=== PATIENT | female | born 1970 | race Caucasian/White ===

== ENCOUNTER 2023-03-21 15:56 | Emergency (ER) | payer BC, SELFPAY ==
[2023-03-21 15:57] VITALS: BP 205/118; PULSE 84; RESP 16; TEMP 36.3; O2SAT 100; BMI 34.3
--- NOTE | 2023-03-21 16:41 | EX.ED.DYSGE1 ---
HPI <AYO Reese - Last Filed: 03/21/23 18:52> History of Present Illness Chief Complaint: Hypertension Narrative Narrative: Patient presenting today due to 2 weeks of intermittent lightheadedness and mild headaches. Over the past week she has had lower back pain that she attributes to recently driving here from [place], she reports that when she drives her back pain worsens. She denies any injury to her back, bowel/bladder incontinence, saddle paresthesia, and urinary symptoms. She reports that a few days ago she had mild midsternal chest pain but she attributes that to being stressed recently. She denies any current chest pain, shortness of breath, or history of blood clots. She has had 2 episodes of nausea and vomiting over the past week, the last time being yesterday. She denies any fever, chills, and abdominal pain. She reports a history of hypertension and has been out of her blood pressure medication for several weeks due to having a lapse in health insurance. PFSH <AYO Reese - Last Filed: 03/21/23 18:52> [facility] Home Medications hydrochlorothiazide 25 mg tablet 25 mg PO DAILY hypertension #30 tabs 03/21/23 [Rx Last Taken Unknown] metoprolol succinate 50 mg tablet,extended release 24 hr 50 mg PO DAILY 90 days #90 tabs 03/21/23 [Rx Last Taken Unknown] Allergy/AdvReac Type Severity Reaction Status Date / Time No Known Allergies Allergy Verified 03/21/23 15:58 Social History Smoking Status: Never smoker ROS <AYO Reese - Last Filed: 03/21/23 18:52> ROS ED Constitutional Constitutional ED: Denies chills or fever(s) Eyes Eyes: Denies change in vision Cardiovascular Cardiovascular: Denies chest pain Respiratory/Chest Respiratory/Chest: Denies cough or dyspnea Gastrointestinal Gastrointestinal: Denies abdominal pain, nausea or vomiting Genitourinary Genitourinary ED: Denies dysuria, hematuria or urinary urgency Musculoskeletal Musculoskeletal: Reports back pain; Denies arthralgias or myalgias Integumentary Denies rash Neurologic Neurologic: Denies paresthesias or weakness EXAM <AYO Reese - Last Filed: 03/21/23 18:52> Physical Exam Const Vital Signs: 03/21/23 15:57 03/21/23 17:01 03/21/23 18:57 Temperature 97.4 F L Temperature Source Temporal Pulse Rate 84 Respiratory Rate 16 Blood Pressure 205/118 H 182/106 H 187/117 H Blood Pressure Mean 147 131 Pulse Ox 100 Oxygen Delivery Method Room Air Positive well nourished, well developed and no apparent distress General Appearance ED: well developed HEENT Reports normocephalic and head/scalp atraumatic Mouth ED: Yes moist mucous membranes normal Eyes PERRL and EOMs intact bilaterally Neck full ROM and supple Chest Wall inspection of chest normal Resp normal respiratory effort and clear to auscultation bilaterally Cardio regular rate and regular rhythm GI soft to palpation, non-tender, non-distended and no masses Back/Spine normal ROM and normal to inspection Thoracic Spine / Upper Back: Negative for thoracic spinal tenderness Lumbar Spine / Lower Back: Negative for lumbar spinal tenderness Extremity normal to inspection and full ROM Neuro oriented x3, CN's II-XII intact bilaterally, moves all extremities, no focal motor deficits and no sensory deficits noted Sensorium / Orientation: awake and alert Motor Exam: strength 5/5 throughout Psych mental status grossly normal and thought process normal Skin no rashes or lesions noted and no wounds <Dr. Caio Tenorio DO - Last Filed: 03/21/23 19:10> Physical Exam Const Vital Signs: 03/21/23 15:57 03/21/23 17:01 03/21/23 18:57 Temperature 97.4 F L Temperature Source Temporal Pulse Rate 84 Respiratory Rate 16 Blood Pressure 205/118 H 182/106 H 187/117 H Blood Pressure Mean 147 131 Pulse Ox 100 Oxygen Delivery Method Room Air MDM <AYO Reese - Last Filed: 03/21/23 18:52> [facility] Narrative Medical decision making narrative: Patient presenting today due to multiple complaints, she has had lower back pain that has been intermittent and started after she completed a drive from [place] to [place] by herself. It hurts worse when driving. She does not have any midline tenderness to her back, she does not have any reproducible paraspinal tenderness to her back. There is no injury to her back, symptoms or not consistent with cauda equina syndrome, I do not feel that any imaging is indicated at this time. She has had 2 episodes of nausea and vomiting over the past week, the last time being yesterday. She does not currently feel nauseous and is not experiencing any abdominal pain. Blood pressure is elevated here at 205/118. She has been out of her metoprolol for several weeks as her PCP would not fill this until patient made an appointment to be seen but she was out of her health insurance for a couple weeks. I will give her a prescription for this with the first dose here. She will be given Toradol for her back pain. Labs will be obtained to rule out leukocytosis, anemia, electrolyte abnormality, B[place], and UTI. She is not experience any chest pain or shortness of breath. Labs are unremarkable. She will be given a prescription for metoprolol and HCTZ. She has follow-up with her PCP and is to start taking her blood pressure regularly and documenting it. Blood pressure is improved after metoprolol. She has been given return instructions and will be discharged home in stable condition. She is comfortable with plan. Lab Data Attestation: I reviewed the patient's lab results. Lab results narrative: H&H 16.2 and 48, total bilirubin 1.2 Labs: Laboratory Results - last 24 hr 03/21/23 16:46 WBC 8.6 RBC 5.42 H Hgb 16.2 H Hct 48.0 H MCV 88.6 MCH 29.9 MCHC 33.8 RDW Std Deviation 40.7 RDW Coeff of [place] 12.5 Plt Count 277 MPV 9.4 Immature Gran % (Auto) 0.300 Neut % (Auto) 64.3 Lymph % (Auto) 23.2 [place] % (Auto) 4.7 Eos % (Auto) 7.2 H Baso % (Auto) 0.3 Absolute Neuts (auto) 5.5 Absolute Lymphs (auto) 1.99 Nucleated RBC % 0 Sodium 141 Potassium 3.7 Chloride 107 Carbon Dioxide 26.0 Anion Gap 8 BUN 14 Creatinine 1.08 H Estim Creat Clear Calc 57.91 Est GFR (MDRD) Af Amer 68 Est GFR (MDRD) Non-Af 56 L BUN/Creatinine Ratio 13.0 Glucose 94 Calcium 9.6 Total Bilirubin 1.20 H AST 18 ALT 36 Alkaline Phosphatase 119 H Total Protein 7.5 Albumin 3.9 Globulin 3.6 Albumin/Globulin Ratio 1.1 Lipase 39 Urine Color Yellow Urine Clarity Clear Urine pH 5.0 Ur Specific [place] 1.025 Urine Protein Negative Urine Glucose (UA) Normal Urine Ketones 5 H Urine Occult Blood Negative Urine Nitrite Negative Urine Bilirubin Negative Urine Urobilinogen Normal Ur Leukocyte Esterase 25 H Urine RBC 0 SEEN Urine WBC 0-5 SEEN Ur Squamous Epith Cells 5-10 SEEN Urine Bacteria 0 SEEN Urine Mucus 0 SEEN <Dr. Caio Tenorio, DO - Last Filed: 03/21/23 19:10> [facility] Lab Data Attestation: I reviewed the patient's lab results. Labs: Laboratory Results - last 24 hr 03/21/23 16:46 WBC 8.6 RBC 5.42 H Hgb 16.2 H Hct 48.0 H MCV 88.6 MCH 29.9 MCHC 33.8 RDW Std Deviation 40.7 RDW Coeff of [place] 12.5 Plt Count 277 MPV 9.4 Immature Gran % (Auto) 0.300 Neut % (Auto) 64.3 Lymph % (Auto) 23.2 [place] % (Auto) 4.7 Eos % (Auto) 7.2 H Baso % (Auto) 0.3 Absolute Neuts (auto) 5.5 Absolute Lymphs (auto) 1.99 Nucleated RBC % 0 Sodium 141 Potassium 3.7 Chloride 107 Carbon Dioxide 26.0 Anion Gap 8 BUN 14 Creatinine 1.08 H Estim Creat Clear Calc 57.91 Est GFR (MDRD) Af Amer 68 Est GFR (MDRD) Non-Af 56 L BUN/Creatinine Ratio 13.0 Glucose 94 Calcium 9.6 Total Bilirubin 1.20 H AST 18 ALT 36 Alkaline Phosphatase 119 H Total Protein 7.5 Albumin 3.9 Globulin 3.6 Albumin/Globulin Ratio 1.1 Lipase 39 Urine Color Yellow Urine Clarity Clear Urine pH 5.0 Ur Specific [place] 1.025 Urine Protein Negative Urine Glucose (UA) Normal Urine Ketones 5 H Urine Occult Blood Negative Urine Nitrite Negative Urine Bilirubin Negative Urine Urobilinogen Normal Ur Leukocyte Esterase 25 H Urine RBC 0 SEEN Urine WBC 0-5 SEEN Ur Squamous Epith Cells 5-10 SEEN Urine Bacteria 0 SEEN Urine Mucus 0 SEEN Treatment and Re-Evaluation Comments:: I have personally performed a face to face assessment of the patient and have reviewed the MAURIZIO Note. I performed a substantive portion of the visit including all aspects of the following. My alfonso findings include: History is patient with a chief complaint of low back pain without radiation. Also has had accelerated hypertension. She has not been on her metoprolol for a significant amount of time. She also notes some intermittent vomiting. No fevers or reasons to suspect an infectious cause for the back pain. There is no neurologic deficits. Strong dorsalis pedis pulses. I do not appreciate a pulsatile mass (to suspect AAA) Exam is nonfocal well-appearing female sitting comfortably in the bed. Palpation of the lumbar paraspinal musculature is not demonstrating any tissue texture changes to associate with underlying infection. Mildly tender to palpation. No midline tenderness. Medical Decison Making basic blood work is negative. Urinalysis is negative. She received a dose of Toradol. We will start her back on her metoprolol. She is going to be in town for at least another month. I will also write for some hydrochlorothiazide as she is to take her blood pressure and record it. If it is above 150 or 160 systolically or above 100 diastolic she is to fill the second agent. She is to follow-up when she gets home return if new or worsening symptoms Discharge Plan Triage Chief Complaint: Hypertension ED Midlevel Provider: Shey Navarro ED Provider: Caio Tenorio Dx/Rx/DC Orders Clinical Impression: Low back pain, Nausea & vomiting, Hypertension Instructions: Hypertension Dc, ED Back Care Tips, ED Vomiting (Adult) Prescriptions: New metoprolol succinate 50 mg tablet extended release 24 hr 50 mg PO DAILY 90 Days Qty: 90 0RF hydrochlorothiazide 25 mg tablet 25 mg PO DAILY Qty: 30 0RF Primary Care Provider: Care Physician,No Primary Referrals: Singh Blake MD [Non-Staff] - As Needed Care Physician,No Primary [Primary Care Provider] - Activity Restrictions/Additional Instructions: Monitor your blood pressure daily. I have given you a PCP that you can follow-up with. Return for any worsening of your symptoms. Disposition Disposition: Home, Self Care Discharge Date/Time: 03/21/23 19:01
[2023-03-21 16:54] LABS: Bacteria 0 SEEN /hpf (None Seen); Mucous, Urine 0 SEEN /hpf (<or=2+); Red Blood Cells-Urine 0 SEEN /hpf (0-5)
[2023-03-21 17:00] LABS: Absolute Lymphocyte Count 1.99 X10^3/uL (0.83-4.51); Absolute Neutrophil Count 5.5 X10^3/uL (2.0-7.7); Basophil# 0.03 X10^3/uL; Basophil% 0.3 % (0-1); Eosinophil# 0.62 X10^3/uL; Eosinophils% 7.2 % (0-5); Hemoglobin 16.2 g/dL (12.0-15.0); Lymphocyte # 1.99 X10^3/ul (0.83-4.51); Lymphocyte % 23.2 % (19-41); Mean Corp Hgb Conc 33.8 g/dL (32-36); Mean Corpuscular Hgb 29.9 pg (27.0-32.0); Mean Corpuscular Volume 88.6 fL (81-99); Mean Platelet Vol. 9.4 fl (6.2-12.0); Monocyte% 4.7 % (0-10); NRBC Flagged by Analyzer 0 % (0-5); Neutrophil # 5.52 X10^3/uL (2.7-7.7); Neutrophil % 64.3 % (47-70); Platelet Count 277 K/mm3 (150-450); RBC Distribution Width CV 12.5 % (11.6-14.6); RBC Distribution Width SD 40.7 fl (35.1-43.9); Red Blood Count 5.42 M/mm3 (4.2-5.4); White Blood Count 8.6 K/mm3 (4.4-11.0)
[2023-03-21 17:01] VITALS: BP 182/106
[2023-03-21 17:15] LABS: Color, Urine Yellow (Yellow); Glucose, Dipstick Normal (Normal); Ketone-Dipstick 5 mg/dl (Negative); Leukocyte Esterase-Dipstick 25 /ul (Negative); Nitrite-Dipstick Negative (Negative); Occult Blood-Urine Negative /ul (Negative); Protein-Dipstick Negative (Negative); Specific Gravity, Urine 1.025 (1.002-1.030); Urine Bilirubin Dipstick Negative (Negative); Urine Clarity Clear (Clear); Urine Urobilinogen Normal (Normal)
[2023-03-21 17:18] LABS: ALB/GLOB Ratio 1.1 RATIO (0.9-2.4); AST(SGOT) 18 U/L (15-37); Alanine Aminotransfer ALT/SGPT 36 U/L (13-56); Albumin, Serum 3.9 g/dL (3.2-5.0); Alkaline Phosphatase 119 U/L (45-117); Anion Gap 8 (5-15); BUN 14 mg/dL (7-18); Calcium,Total 9.6 mg/dL (8.5-10.1); Chloride 107 mmol/L (98-107); Creatinine, Serum 1.08 mg/dL (0.55-1.02); EST Glomerular Filtration Rate 56 mL/min (>60); Est Glom Filt Rate - Afr Amer 68 mL/min (>60); Estimated Creatinine Clearance 57.91 ml/min; Globulin 3.6 g/dL (2.2-4.2); Glucose 94 mg/dL (74-106); Lipase 39 U/L (13-75); Potassium 3.7 mmol/L (3.5-5.1); Protein, Total 7.5 g/dL (6.4-8.2); Sodium Level 141 mmol/L (136-145)
[2023-03-21 17:29] LABS: Squamous Epithelial Cells - UA 5-10 SEEN /hpf (5-10); White Blood Cells 0-5 SEEN /hpf (0-5)
[2023-03-21] MEDS: Metoprolol(XL)Succ 50 MG Tablet PO (17:34)
[2023-03-21] MEDS: Ketorolac 15 MG/ML Vial IV (17:48)
[2023-03-21 18:57] VITALS: BP 187/117
== END 2023-03-21 19:01 | disposition home or self-care (01) ==
PROVIDERS: Physician Assistant; Emergency Provider Emergency Medicine; Visit Provider Emergency Medicine
DX: I10 Essential (primary) hypertension (principal); R11.2 Nausea with vomiting, unspecified; M54.50 Low back pain, unspecified
CPT/HCPCS: 80053; 81001; 83690; 85025; 96374; 99283; A4216